=== PATIENT | female | born 1985 | race Caucasian/White ===

== ENCOUNTER 2020-02-11 13:35 | Outpatient (REF) | payer MEDICAID, SELFPAY ==
[2020-02-11 21:04] LABS: TSH (W/Ref FT4) 1.08 uIU/mL (0.36-3.74)
== END 2020-02-11 13:55 ==
LOC: NCHCN 13:35
PROVIDERS: PCP Family Medicine; Visit Provider Nurse Practitioner Family
DX: K58.9 Irritable bowel syndrome, unspecified (principal); K21.9 Gastro-esophageal reflux disease without esophagitis; E66.9 Obesity, unspecified
CPT/HCPCS: 84443

== ENCOUNTER 2020-06-13 07:26 | Outpatient (CLI) | payer MEDICAID, SELFPAY ==
[2020-06-14 17:24] LABS: COVID-19 RT-PCR Result NEGATIVE (Negative)
== END 2020-06-13 07:46 ==
PROVIDERS: PCP Family Medicine; Visit Provider Surgery
DX: Z11.59 Encounter for screening for other viral diseases (principal); Z01.818 Encounter for other preprocedural examination
CPT/HCPCS: U0003

== ENCOUNTER 2020-06-15 08:07 | Day surgery (SDC) | payer MEDICAID, SELFPAY ==
--- NOTE | 2020-06-15 06:56 | ENDO_ITS ---
Date of service: 06/15/20 Time of Service: 09:33 Endoscopy Report DATE OF PROCEDURE: 06/15/20 PRE-OP DIAGNOSIS: GERD, Hx of Martinez's PROCEDURE: EGD with biopsies SURGEON: Elena Salgado ANESTHESIA: other (general/ ASA 2/Cathi Salcido, LUCI) ESTIMATED BLOOD LOSS: 2 PATHOLOGY: other (Antrum bx, GE junction bx) COMPLICATIONS: None DISPOSITION: same day INDICATIONS: (1) GERD (gastroesophageal reflux disease): A\\ Kati is a 34-year-old female who I scoped in 2016 for dysphasia. She was diagnosed with Martinez's esophagitis and reflux. She was placed on twice daily Protonix and Zantac at nighttime for a few months. The hope was to then start to decrease her Protonix to daily and hopefully get her off the Zantac. She tells me that her symptoms never really went away 100%. Her Nexium was switched to Protonix daily and her Zantac was stopped and she was started on Pepcid 20 mg twice a day. Recently her symptoms have gotten worse again and her Protonix was increased to twice a day. P\\ EGD with biopsies COVID Testing Risks, benefits and complications have been reviewed. Complications include but are not limited to bleeding, pain, perforation, sore throat, aspiration, and adverse reaction to the medications. Questions were entertained and answered to their satisfaction and they wished to proceed. No guarantees were given or implied. COVID-19 testing explained to the patient. Reason for test reviewed. Quarantine per state requirements reviewed with patient. Patient understands and agrees to testing. (2) Barretts esophagus: As above FINDINGS: Mild gastritis, mild esophagitis PROCEDURE DESCRIPTION: After informed consent was obtained the patient was take to the procedure room and placed in a supine position. Monitors were applied and a time out was done. The patients name, date of , procedure type, allergies to medications and metal in their body was reviewed. A bite block was placed and the patient was sedated. Once sedated and comfortable the gastroscope was advanced through the oropharynx which was grossly normal into the esophagus. The proximal and mid- esophagus were normal. There was normal peristalsis noted. In the distal esophagus there was mild inflammation noted. The scope was advanced into the stomach and through the pylorus into the 3rd portion of the duodenum. The duode num was noted to be normal. The scope was retracted back into the stomach. There was mild inflammation of the antrum and biopsies were done to rule out H. pylori. There were no ulcers. The scope was retro-flexed. The cardia and fundus were noted to be normal. There was no hiatal hernia noted. The scope was retracted back into the esophagus and biopsies were done of the GE junction to rule out Martinez's. The Z line was slightly irregular. The GE junction was at 35 cm. The scope was removed and the patient was woken up and taken back to [facility] in stable condition. Follow up: 2 weeks in the office
--- NOTE | 2020-06-15 07:00 | W.PM.DSUDISC ---
Discharge Plan Disposition Patient Disposition: HOME Condition: Good Discharge Details Reason For Visit: GERD and Martinez's Attending Provider: Elena Salgado Primary Care Provider: Rose Moya [place] Meds and New Rx's Prescriptions: No Action pantoprazole [Protonix] 40 mg tablet,delayed release (DR/EC) 40 mg PO BID RF: 0 loratadine [Claritin Liqui-Gel] 10 mg capsule 10 mg PO DAILY RF: 0 hydroxyzine HCl 25 mg tablet 25 mg PO TID PRNRF: 0 dicyclomine 20 mg tablet 40 mg PO TID RF: 0 famotidine [Acid [place]er (famotidine)] 20 mg tablet 20 mg PO BID RF: 0 etonogestrel 68 mg implant 1 implant subdermal ONCE RF: 0 citalopram [Celexa] 10 mg tablet 40 mg PO DAILY RF: 0
--- NOTE | 2020-06-15 07:02 | W.PM.DSUDISC ---
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 Because there will be medication in your system for the next 24 hours, you may feel a little sleepy. Your coordination will be affected. Therefore: a. Do not drive or operate dangerous equipment for 24 hours. b. Do not drink alcohol beverages for 24 hours (not even beer). c. Plan to go home and rest for the day. 2. Generally there are no restrictions on your activity after a day or so has gone by, but you may feel a bit fatigued for a few days. 3 After you arrive home you may have a light meal and return to a normal diet as you can tolerate it without feeling sick to your stomach. 4. After surgery, you may feel pain or discomfort. This should be only transient, but if it persists please contact your doctor. 5. If there are any questions regarding the findings of your procedure, please feel free to contact your doctor. 6. If you are unable to contact your doctor with a problem, contact the hospital at [phone]. 7. Continue all your regular medications unless directed otherwise. I understand the above instructions and have no questions. Signature of Patient or Responsible Adult Escort Date/Time Name of Responsible Adult Escort Signature of Nurse Date/Time Activity:: Activity as Tolerated Diet:: As Tolerated Discharge Orders Discharge Orders: Discharge Order (Routine); Ordered 06/15/20 Ordered By: Elena Salgado
[2020-06-15 08:18] VITALS: BP 111/74; PULSE 75; RESP 18; TEMP 36.1; O2SAT 97
[2020-06-15] MEDS: Lactated Ringers 1,000 ML 80 ML IV (08:40)
--- NOTE | 2020-06-15 09:36 | ESO_PTH ---
PATIENT: Kati Person LOC: [facility] U#:[id number] AGE/SX: 35/F ROOM: RE06/15/[address]: Elena Salgado MD : 1985 BED: DIS: 06/15/2020 SPEC #: [id number] RECD: 06/15/20 12:43 STATUS: LAURENCE REQ #: [id number] KEILA: 06/15/20 09:[address]: Elena Salgado DEPT: Surgical Specimen RECD BY: Alondra Walls ENTERED: 06/15/20 12:44 SP TYPE: Eso OTHR DR: Rose Moya Tissues: 1 - STOMACH BIOPSY 2 - ESOPHAGUS BIOPSY Procedures: GROSS AND MICRO LEVEL 4 Comments: [id number]
[2020-06-15 10:10] VITALS: BP 121/85; PULSE 66; RESP 17; TEMP 36.6; O2SAT 100
== END 2020-06-15 10:35 | disposition home or self-care (01) ==
LOC: SUR 08:08
PROVIDERS: PCP Family Medicine; Visit Provider Surgery
PROC: 0DJ68ZZ Inspection of Stomach, Via Natural or Artificial Opening Endoscopic (ICD-10-PCS; CPT 43235; principal; 2020-06-15 09:45)
DX: K21.0 Gastro-esophageal reflux disease with esophagitis; K31.89 Other diseases of stomach and duodenum; K29.70 Gastritis, unspecified, without bleeding; Z87.19 Personal history of other diseases of the digestive system
CPT/HCPCS: 43239; 88305; J2001; J2704

== ENCOUNTER 2021-02-28 16:20 | Outpatient (REF) | payer MEDICAID, SELFPAY ==
[2021-02-28 14:11] LABS: Calculated LDL 117 mg/dL (<100); Cholesterol 172 mg/dL (<200); HDL Cholesterol 34 mg/dL (40-60); Triglyceride 107 mg/dL (<150)
== END 2021-02-28 16:21 | disposition home or self-care (01) ==
LOC: NCHCN 16:20
PROVIDERS: PCP Family Medicine; Visit Provider Internal Medicine
DX: Z13.220 Encounter for screening for lipoid disorders (principal); Z00.00 Encounter for general adult medical examination without abnormal findings
CPT/HCPCS: 80061

== ENCOUNTER 2021-06-19 21:36 | Outpatient (REF) | payer MEDICAID, SELFPAY ==
[2021-06-19 22:24] LABS: Abs Immature Grans 0.02 10^3/uL (0.0-0.06); Absolute Basophil Count 0.08 10^3/uL (0.0-0.2); Absolute Eosinophil Count 0.17 10^3/uL (0.0-0.7); Absolute Lymphocyte Count 2.69 10^3/uL (1.2-3.4); Absolute Monocyte Count 0.35 10^3/uL (0.1-0.8); Absolute Neutrophil Count 5.37 10^3/uL (1.2-6.7); Basophils % 0.9; HCT 48.1 % (36.0-46.0); HGB 15.4 g/dL (11.2-15.7); Immature Grans % 0.2; MCH 27.3 pg (27.0-33.0); MCV 85.1 fL (80-95); Neutrophils % 61.9; Nucleated RBC 0 %; RBC 5.65 10^6/uL (3.93-5.22); RDW 13.3 % (11.7-14.6); RDW-SD 41.9 fL; WBC 8.68 10^3/uL (4.4-10.8)
[2021-06-19 22:29] LABS: Iron 45 ug/dL (50-170); Total Iron Binding Capacity 414 ug/dL (250-450); Transferrin Sat 11 % (15-50)
[2021-06-19 22:47] LABS: ALT 32 U/L (14-59); AST 13 U/L (15-37); Alkaline Phosphatase 57 U/L (46-116); Anion Gap 8.6 mmol/L (3-11); BUN 8 mg/dL (7-18); Bilirubin, Total 0.3 mg/dL (0.2-1.0); CO2 26.4 mmol/L (21.0-32.0); CREATININE 0.8 mg/dL (0.55-1.02); Calculated LDL 117 mg/dL (<100); Chloride 105 mmol/L (98-107); Cholesterol 171 mg/dL (<200); Ferritin 34 ng/mL (8-252); Glucose 110 mg/dL (74-106); HDL Cholesterol 33 mg/dL (40-60); Potassium 4.1 mmol/L (3.5-5.1); Sodium 140 mmol/L (136-145); TSH (W/Ref FT4) 1.56 uIU/mL (0.36-3.74); Total Protein 7.9 g/dL (6.4-8.2); Triglyceride 108 mg/dL (<150); Vitamin B12 448 pg/mL (193-986)
[2021-06-22 14:07] LABS: IgA 205 mg/dL (85-499); Interpretation (See Note); Tissue Transglutaminase IgA 1.2 U/mL (<4.0)
== END 2021-06-19 21:37 | disposition home or self-care (01) ==
LOC: NCHCN 21:36
PROVIDERS: Visit Provider Nurse Practitioner Family
DX: K58.9 Irritable bowel syndrome, unspecified (principal); K21.9 Gastro-esophageal reflux disease without esophagitis; F41.8 Other specified anxiety disorders; G43.109 Migraine with aura, not intractable, without status migrainosus; R20.2 Paresthesia of skin; N39.3 Stress incontinence (female) (male)
CPT/HCPCS: 80053; 80061; 82784; 83516; 82607; 82728; 83540; 83550; 84443; 85025

== ENCOUNTER 2021-09-04 01:52 | Outpatient (CLI) | payer MEDICAID, SELFPAY ==
[2021-09-04 10:32] LABS: Source Nasal/Nares
[2021-09-04 12:53] LABS: COVID-19 PCR Negative (Negative)
== END 2021-09-04 01:53 | disposition home or self-care (01) ==
LOC: LBO 01:52
PROVIDERS: PCP Nurse Practitioner Family; Visit Provider Surgery
DX: Z20.822 Contact with and (suspected) exposure to COVID-19 (principal); Z01.818 Encounter for other preprocedural examination
CPT/HCPCS: 87635

== ENCOUNTER 2021-09-05 07:56 | Day surgery (SDC) | payer MEDICAID, SELFPAY ==
--- NOTE | 2021-09-04 12:24 | W.COLOREPORT ---
Colonoscopy Report Date of procedure: 09/05/21 Pre-op diagnosis general: abdominal pain and diarrhea Post-op diagnosis procedure note: other (lg colon polyp) Surgeon: Aditi Conde Anesthesia Type: General LMA/ETT Pathology: other Complications: None Disposition: PACU Prep: Miralax/Dulcolax Retraction Time: 11 Procedure Description: After informed consent was obtained the patient was taken to the procedure room and placed in a left decubitous position. Monitors were applied and a time out was done. The patients name, date of , procedure, allergies to medications and metal in their body was reviewed. The patient was then sedated. Once sedated and comfortable a rectal exam was done. External exam was normal. Internal exam revealed a normal sphincter tone and no palpable masses. The scope was then introduced and retrofelexed. No internal hemorrhoids were identified. The scope was then advanced to the cecum without difficulty. The TI and appendiceal orifice were identified. The prep was good. The scope was then slowly retracted over 11 minutes back into the rectum. There are no diverticula apparent. The mucosa appears pink and healthy. There is no signs of chronic inflammatory bowel disease. I could not intubate the TI. At 50 cm she does have a 1 cm pedunculated polyp. This is removed with a hot snare. All specimen is retrieved and no bleeding is noted. The colonoscopy is otherwise normal. The scope was removed and the patient was woken up and taken back to Same day surgery in stable condition. The patient tolerated the procedure well and there were no immediate complications. Follow up: The patient should follow up in 3-5 years,path pd unless they develop changes in bowel habits or other new gastrointestinal complaints.
--- NOTE | 2021-09-04 12:26 | W.PM.DSUDISC ---
Discharge Plan Disposition Patient Disposition: HOME Condition: Good Discharge Details Reason For Visit: colon scope Attending Provider: Aditi Conde Primary Care Provider: Jennifer Montiel Home Meds and New Rx's Prescriptions: No Action loratadine [Claritin Liqui-Gel] 10 mg capsule 10 mg PO DAILY RF: 0 etonogestrel 68 mg implant 1 implant subdermal ONCE RF: 0 polyethylene glycol 3350 17 gram/dose powder 238 g PO ONCE Qty: 238 RF: 0 bisacodyl [Dulcolax (bisacodyl)] 5 mg tablet,delayed release (DR/EC) 5 mg PO ONCE Qty: 4 RF: 0 sucralfate [Carafate] 1 gram tablet 1 g PO QACHS PRN (Reason: heartburn/indigestion) Qty: 120 RF: 12 citalopram [Celexa] 10 mg tablet 40 mg PO DAILY RF: 0 propranolol 10 mg tablet 10 mg PO BID RF: 0 esomeprazole magnesium [Nexium] 20 mg capsule,delayed release(DR/EC) 20 mg PO DAILY RF: 0 Discharge Instructions Additional Instructions: DSU EGS Post-Op Instructions Instructions for Everyone who is given Anesthesia: For your safety, please do the following for the next twenty-four (24) hours: *Do Not operate a motor vehicle (car, truck, motorcycle, etc.) *Do Not drink alcoholic beverages or use any recreational drugs for the first 24 hours or while taking pain medications. The medications in your body may have a reaction that can be dangerous. *Do Not make any important decisions or sign any important papers. Findings: large colon polyp. Otherwise normal Follow up:2-3 wks. 1. No lifting over 20 pounds or strenuous activity for the first 24 hours after your procedure. After 24 hours there are no restrictions on your activity but you may feel fatigued for a few days. 2. After you arrive home you may have a light meal and return to your normal diet as you can tolerate it without feeling sick to your stomach. 3. You may have a bloated, gaseous feeling in your belly (abdomen) after a colonoscopy. Passing gas and belching will help. Walking or lying down on your left side with your knees flexed may relieve the discomfort. Call the office at [phone] (Office) or [phone] (Hospital) right away if you notice any of the following: a.Vomiting of blood or ?coffee ground stools?. b.Rectal bleeding 1Tbsp, blood clots or continuous bleeding. c.Severe belly (abdominal) pain. d.A hard distended belly (abdomen) and an inability to pass gas. 4. Please don?t expect to have a normal BM (bowel movement) for 2-3 days after your procedure. 5. If there are questions regarding the findings of your procedure, please contact your doctor 6. If you are unable to contact your doctor with a problem, contact the hospital at [phone]. 7. Continue all your regular medications unless directed otherwise. I understand the above instructions and have no questions. Signature of Patient or Adult Escort Name of Responsible Adult Escort Signature of Nurse Date/Time Activity:: see above Diet:: see above Discharge Orders Discharge Orders: Discharge Order (Routine); Ordered 09/04/21 Ordered By: Aditi Conde DS: Diagnosis Discharge Diagnosis (1) Obesity: Status: Acute (2) PTSD (post-traumatic stress disorder): Status: Acute (3) GERD (gastroesophageal reflux disease): Status: Acute (4) IBS (irritable bowel syndrome): Status: Acute (5) Barretts esophagus: Status: Acute (6) Sleep apnea: Status: Acute
[2021-09-05] VITALS (8 sets, daily range): BP systolic 123–145; BP diastolic 78–96; PULSE 67–92; RESP 16–24; TEMP 36.1–36.5; O2SAT 96–100; BMI 38.6
[2021-09-05] MEDS: Lactated Ringers 1,000 ML 80 ML IV (08:28)
--- NOTE | 2021-09-05 08:42 | W.ANESPRE ---
General Info Date of Service Date Performed: 09/05/21 Height: 5 ft 6 in Weight: 108.5 kg Body Mass Index (BMI): 38.6 Surgical Procedure: Operation Date: 09/05/21 09:20 Proposed Procedures Side Surgeon p Colonoscopy w/Biopsy Aditi Conde, Meds Allergies and Home Medications Allergies Allergy/AdvReac Type Severity Reaction Status Date / Time No Known Allergies Allergy Unverified 09/05/21 08:13 Home Medication Medication Instructions Recorded citalopram 10 mg tablet 40 mg PO DAILY tab-cap 05/27/20 etonogestrel 68 mg subdermal 1 implant SUBDERMAL ONCE 05/27/20 implant loratadine 10 mg capsule 10 mg PO DAILY 05/27/20 esomeprazole magnesium 20 mg 20 mg PO DAILY 08/03/21 capsule,delayed release propranolol 10 mg tablet 10 mg PO BID 08/03/21 bisacodyl 5 mg tablet,delayed 5 mg PO ONCE #4 tab 08/14/21 release polyethylene glycol 3350 17 238 g PO ONCE #238 g 08/14/21 gram/dose oral powder sucralfate 1 gram tablet 1 g PO QACHS PRN #120 tab 08/14/21 Current Visit Medications: Current Medications Generic Name Dose Route Start Last Admin Trade Name Freq PRN Reason Stop Dose Admin Hyoscyamine Sulfate 0.125 mg 09/04/21 12:24 Hyoscyamine 0.125 Mg Sl/Oral/Chew SL DIRECTED PRN Ringer's Solution 1,000 mls @ 80 mls/hr 09/05/21 06:00 09/05/21 08:28 IV 09/15/21 23:59 80 mls/hr INFUSION KATE Administration IV Miscellaneous Supplies 1 each 09/05/21 06:00 Iv Access IV 09/15/21 23:59 DIRECTED KATE Ondansetron HCl 4 mg 09/04/21 12:24 Ondansetron 4 Mg/2 Ml Vial IVP Q4H PRN PRN Nausea / Vomiting Sodium Chloride 0 ml 09/05/21 06:00 Normal Saline Flush 10 Ml Syr IV 09/15/21 23:59 PRN PRN Sodium Chloride 0 ml 09/05/21 06:00 Normal Saline 10 Ml Vial IJ 09/15/21 23:59 DIRECTED PRN Sterile Water 0 ml 09/05/21 06:00 Water,Injection,Sterile 10 Ml Vial IJ 09/15/21 23:59 DIRECTED PRN PFSH Active Problems Active Problems: Problem Status Onset Code Sleep apnea G47.30 Snoring R06.83 Obesity E66.9 PTSD (post-traumatic stress disorder) F43.10 GERD (gastroesophageal reflux disease) K21.9 IBS (irritable bowel syndrome) K58.9 Barretts esophagus K22.70 Medical History Medical History Anxiety and depression Martinez's esophagus determined by biopsy (07/09/16) Breast pain Dysphagia (12/14/13) Enlarged thyroid Low back pain Migraine headache Paresthesia Pharyngitis (12/14/13) Streptococcal sore throat (12/14/13) Stress incontinence Tonsillitis (12/14/13) Surgical History Surgical History EGD - MAC (06/21/16) Tonsillectomy Tobacco Smoking/Tobacco Use Status: Never Alcohol Alcohol Intake: former Substance Use Substance use: Never Substance use type: does not use Vital Signs and Lab Results Vital Signs Most Recent Vital Signs in EMR: Most Recent Vital Signs Temp Pulse Resp BP Pulse Ox 36.1 C L 92 H 16 145/96 H 99 09/05/21 08:02 09/05/21 08:02 09/05/21 08:02 09/05/21 08:02 09/05/21 08:02 Point of Care Results Point of Care Results: POC- Test(urine) Negative 09/05/21 08:19 Lab Results Blood Type / Crossmatch: No Data to Display Complete Blood Count: No Data to Display Complete Metabolic Panel: No Data to Display Liver Function Panel: No Data to Display Coagulation Panel: No Data to Display Cardiac Panel: No Data to Display Arterial Blood Gas: No Data to Display Venous Blood Gas: No Data to Display Pancreas Panel: No Data to Display Thyroid Panel: No Data to Display Infectious Disease: Coronavirus (COVID-19)(PCR) Negative (Negative) 09/04/21 08:45 09/04/21 Coronavirus 2019 Source Nasal/Nares 09/04/21 08:45 09/04/21 Blood Cultures: No Data to Display Toxicology Panel: No Data to Display Panel: No Data to Display Anesthesia Assessment and Plan Anesthesia History Personal History: No History of Anesthesia Complications Family History: No Family History of Anesthesia Complications Exercise Tolerance Exercise Tolerance: Metabolic Equivalents>4 Pertinent Negatives Pertinent Negatives: No Major Cardiovascular Symptoms or Complaints and No Major Pulmonary Symptoms or Complaints Cardiac & Pulmonary Exam Cardiac Exam: Normal S1/S2 Heart Sounds Pulmonary Exam: Clear Bilateral Breath Sounds Implantable Cardiac Device Does patient have a Pacemaker or an ICD?: No Airway Exam Known Difficult Airway: No Mallampati Class: 1 Mouth Opening: Normal (> 3cm) Thyromental Distance: Greater than 3 cm Neck Range of Motion: Full ROM Neck Circumference: Normal Teeth Condition: Normal Dentition ASA Classification ASA Score: ASA 2 Emergency Case?: No NPO Status NPO Status: NPO Clears >2 hours, Solids >8 hours Status Status: Negative HCG Anesthesia Plan Resuscitation Status: Full Code Anesthesia Technique: General Anesthesia Airway Planned: Natural Airway Monitors Used: Standard Monitors Preoperative Comments:: Uncontrolled GERD, plan GA ETT
--- NOTE | 2021-09-05 09:35 | BOWEL_PTH ---
PATIENT: Kati Person LOC: [facility] U#:[id number] AGE/SX: 36/F ROOM: RE09/05/[address]: Aditi Conde : 1985 BED: DIS: 09/05/2021 SPEC #: [id number] RECD: 09/05/21 12:47 STATUS: LAURENCE REDiana #: [id number] KEILA: 09/05/21 09:[address]: Aditi Conde DEPT: Surgical Specimen RECD BY: Alondra Walls ENTERED: 09/05/21 12:49 SP TYPE: Bowel OTHR DR: Jennifer Montiel Tissues: 1 - BIOPSY BOWEL 2 - BIOPSY BOWEL 3 - BIOPSY BOWEL 4 - BIOPSY BOWEL 5 - BIOPSY BOWEL 6 - BIOPSY BOWEL 7 - BIOPSY BOWEL Procedures: GROSS AND MICRO LEVEL 4 Comments: [id number]
--- NOTE | 2021-09-05 11:06 | W.ANESPOSTOP ---
Postoperative Evaluation Date, Time and Location Date Performed: 09/05/21 Time Performed: 11:06 Patient Location: Day Surgery Unit Vital Signs Most Recent Imported Vital Signs: Most Recent Vital Signs Temp Pulse Resp BP Pulse Ox 36.3 C L 72 16 123/87 98 09/05/21 10:50 09/05/21 10:50 09/05/21 10:50 09/05/21 10:50 09/05/21 10:50 Pain Score Most Recent Pain Score: Most Recent Pain Score Pain Level 0 09/05/21 10:50 Assessment Mental Status: Awake (Alert & Oriented to Patient Baseline) Airway and Respiratory Function: Patent airway with normal (patient baseline) respiratory exam Cardiovascular Function: Hemodynamically Stable Hydration Status: Adequately Hydrated Nausea & Vomiting: No Nausea or Vomiting Pain: Pt. Denies Any Pain Peripheral Nerve Block: Patient did not receive a nerve block
== END 2021-09-05 11:40 | disposition home or self-care (01) ==
PROVIDERS: PCP Nurse Practitioner Family; Visit Provider Surgery
PROC: 0DJD8ZZ Inspection of Lower Intestinal Tract, Via Natural or Artificial Opening Endoscopic (ICD-10-PCS; CPT 45378; principal; 2021-09-05 09:15)
DX: K58.0 Irritable bowel syndrome with diarrhea (principal); D12.5 Benign neoplasm of sigmoid colon; K22.70 Barrett's esophagus without dysplasia; E66.9 Obesity, unspecified; K21.9 Gastro-esophageal reflux disease without esophagitis; K63.5 Polyp of colon; K62.1 Rectal polyp
CPT/HCPCS: 45385; 81025; 88305; J1100; J2405

== ENCOUNTER 2023-08-28 18:49 | Emergency (ER) | payer BC, MEDICAID, SELFPAY ==
--- NOTE | 2023-08-28 18:55 | ED.GENADUL_ITS ---
Discharge Plan Disposition Patient Disposition: Home Condition: Good Discharge Details Clinical Impression: Left ankle sprain Primary Care Provider: Jennifer Montiel ED Provider: Leonel Baker Meds and New Rx's Prescriptions: Continued Claritin Liqui-Gel 10 mg capsule 10 mg PO DAILY etonogestrel 68 mg implant 1 implant subdermal ONCE Patient Comments: L arm Rx Instructions: as a single dose sucralfate [Carafate] 1 gram tablet 1 g PO QACHS PRN (Reason: heartburn/indigestion) Qty: 120 12RF citalopram [Celexa] 10 mg tablet 40 mg PO DAILY esomeprazole magnesium [Nexium] 20 mg capsule,delayed release(DR/EC) 20 mg PO DAILY Discharge Instructions Instructions: Ankle Sprain (ED), Crutch Instructions (ED) Additional Instructions: You were seen in the ED for left ankle injury. There is no evidence of fracture or dislocation on x-ray. Because of the swelling and pain you are placed in a walking boot and given crutches, weight-bear as tolerated. It will be important to keep the leg elevated, use ice over the next few days to bring down the swelling. You may use acetaminophen or ibuprofen as needed for pain. You should follow-up with primary care next week. Return to ED for any significant increase in pain or swelling, numbness, weakness, discoloration of the foot. Medical Decision Making Patient presenting with left ankle injury status post slip and fall. No other injury. She reports minor head strike with no loss of consciousness, no headache, no thinners. Denies . Will obtain left ankle films. Ankle films per my read without acute fracture or dislocation. Preliminary radiology read same. Patient unable to bear weight currently because of pain. Will be placed in a walking boot and given crutches to weight-bear as tolerated. Ice, elevate, ibuprofen or acetaminophen for pain. Follow-up with primary care next week. Return precautions provided. HPI General Mode of arrival: ambulatory . Date/Time Provider Initiated Documentation: 08/28/23 18:55 . Limitations to Documentation: no limitations . Information obtained by: patient . HPI Narrative: Patient presents to ED with left ankle injury status post slip and fall. She did hit her head but describes it as minor with no loss of consciousness, no headache, no neck pain. Denies any upper body injury. Denies injury to right lower extremity. Has pain, swelling, popping in the left ankle. Denies any left hip or knee pain. Denies any numbness or weakness. Related Data Home Medications Medication Instructions Recorded Confirmed citalopram 10 mg tablet (Celexa) 40 mg PO DAILY 05/27/20 08/28/23 etonogestrel 68 mg subdermal 1 implant subdermal ONCE 05/27/20 08/28/23 implant loratadine 10 mg capsule (Claritin 10 mg PO DAILY 05/27/20 08/28/23 Liqui-Gel) esomeprazole magnesium 20 mg 20 mg PO DAILY 08/03/21 08/28/23 capsule,delayed release (Nexium) sucralfate 1 gram tablet (Carafate) 1 g PO QACHS PRN 08/14/21 08/28/23 heartburn/indigestion #120 tabs Previous Rx's Medication Instructions Recorded sucralfate 1 gram tablet (Carafate) 1 g PO QACHS PRN 08/14/21 heartburn/indigestion #120 tabs Allergies Allergy/AdvReac Type Severity Reaction Status Date / Time No Known Allergies Allergy Unverified 08/28/23 19:05 Review of Systems Narrative: Per HPI PFSH All Active Problems (Updated 08/28/23 @ 19:43 by Leonel Baker MD) Left ankle sprain (Acute) Enlarged thyroid (Acute) Breast pain (Acute) Paresthesia (Acute) Low back pain (Acute) Stress incontinence (Acute) Dysphagia (Acute 12/14/13) Tubulovillous adenoma (Acute ~09/05/21) Snoring (Acute) Obesity (Acute) IBS (irritable bowel syndrome) (Acute) Barretts esophagus (Acute) Medical History Sleep apnea PTSD (post-traumatic stress disorder) GERD (gastroesophageal reflux disease) Migraine headache Martinez's esophagus determined by biopsy (07/09/16) Anxiety and depression Surgical History History of colonoscopy with polypectomy (~09/05/21) Tonsillectomy EGD - MAC (06/21/16) Family History Other Diabetes Esophageal cancer Social History Smoking/Tobacco Use Status: Never Smoking risk assessment performed?: Yes Alcohol Intake: former Drug use: Never Substance use type: does not use Do you feel safe at home: Yes Do you feel safe in your relationship?: Yes Exam Narrative Exam Narrative: Const: WDWN female in NAD. HEENT: NC/AT. Normal facial exam. Eyes: Normal conjunctiva and sclera. Neck: Supple. Trachea midline. Lungs: Normal respiratory effort. Cor: RRR. Good distal pulses. Neuro: A+O x 3. Normal speech, mentation. Cranial nerves II - XII grossly intact. No gross motor or sensory deficit. Ext: No C/C/E. Left ankle with pain and swelling just below the lateral malleolus. No tenderness involving the foot with sensation and strength in the foot, good pulses, good cap refill. Left knee normal. Skin: Warm and dry without rash.
[2023-08-28 19:00] VITALS: BP 148/91; PULSE 93; RESP 16; TEMP 36.9; O2SAT 98
--- NOTE | 2023-08-28 19:00 | DI.RAD_ITS ---
Exam(s) XR ANKLE LT COMPLETE EXAM: XR ANKLE LT COMPLETE CLINICAL HISTORY: fall/trauma TECHNIQUE: 2D digital imaging was performed of the left ankle. Three images were obtained. AP, lat eral and oblique views were obtained. COMPARISON: No exams were available for comparison FINDINGS: BONES: No acute fracture is present. No bony destructive lesion is seen. JOINTS:The ankle mortise is normally aligned. SOFT TISSUE: There is mild soft tissue swelling around the ankle. IMPRESSION: No acute fracture or dislocation. DATA REPOSITORY: RADIATION DOSE DELIVERED:
--- NOTE | 2023-08-28 19:38 | DI.VRAD_ITS ---
PROCEDURE INFORMATION: Exam: XR Left Ankle Exam date and time: 08/28/2023 19:30 Age: 38 years old Clinical indication: Injury or trauma; Fall; Blunt trauma; Ankle; Left TECHNIQUE: Imaging protocol: Radiologic exam of the left ankle. Views: 3 or more views. COMPARISON: No relevant prior studies available. FINDINGS: Bones/joints: The ankle mortise is intact. No acute fracture or subluxation. Soft tissues: Soft tissue swelling medially. Soft tissue swelling laterally. IMPRESSION: No acute bony pathology. Dictated and Authenticated by: Malka Araiza MD. Ordering:ZAYRA Castaneda MD
== END 2023-08-28 20:04 | disposition home or self-care (01) ==
PROVIDERS: Emergency Provider Emergency Medicine; PCP Nurse Practitioner Family
DX: M25.572 Pain in left ankle and joints of left foot (principal); S93.402A Sprain of unspecified ligament of left ankle, initial encounter; W19.XXXA Unspecified fall, initial encounter
CPT/HCPCS: 99283; 73610

== ENCOUNTER 2025-04-12 12:54 | Outpatient (REF) | payer BC, SELFPAY | END 2025-04-12 12:55 | disposition home or self-care (01) | LOC: LBN 12:54 | PROVIDERS: PCP Nurse Practitioner Family; Visit Provider Physician Assistant Medical | DX: L02.419 Cutaneous abscess of limb, unspecified (principal) | CPT/HCPCS: 87070; 87205 ==